=== PATIENT | female | born 1950 | race Caucasian/White ===

== ENCOUNTER 2017-02-26 10:21 | Inpatient (IN) | payer BC, MEDICARE ==
[2017-02-26 10:45] LABS: #Basophils 0.1 thou/uL (0.0-0.2); #Eosinphils 0.1 thou/uL (0.0-0.7); #Lymphocytes 2.1 thou/uL (1.20-3.40); #Monocytes 0.5 thou/uL (0.11-0.59); #Neutrophils 5.6 thou/uL (1.40-6.50); %Basophils 0.9 % (0.0-1.0); %Eosinophils 1.2 % (0.0-10.0); %Lymphocytes 25.3 % (21.0-51.0); %Monocytes 5.4 % (0.0-10.0); Hematocrit 40.4 % (36.0-47.0); Mean Platelet Volume 6.8 fL (7.4-10.4); Red Blood Cell (RBC) Count 4.26 mill/uL (4.20-5.40); White Blood Cell (WBC) Count 8.3 thou/uL (4.8-10.8)
[2017-02-26 11:11] LABS: ALT (SGPT) 9 U/L (8-55); AST (SGOT) 13 U/L (5-34); Alkaline Phosphatase 93 U/L (40-150); Anion Gap 17 mmol/L (10-20); BUN (Urea Nitrogen) 11 mg/dL (9.8-20.1); Bilirubin, Total 0.4 mg/dL (0.2-1.2); CK (CPK) 63 U/L (29-168); Calc. Creatinine Clearance 0 mL/min (70-130); Calcium 9.8 mg/dL (7.8-10.44); Carbon Dioxide 23 mmol/L (23-31); Chloride 101 mmol/L (98-107); Estimated GFR-MDRD 60; Globulin 3.2 g/dL (2.4-3.5); Lipase 15 U/L (8-78); Protein, Total 7.9 g/dL (6.0-8.3)
--- NOTE | 2017-02-26 11:18 | RAD ---
CHEST ONE VIEW: History: Syncope. Dyspnea. FINDINGS: No comparison. The cardiac silhouette and pulmonary vasculature are unremarkable. Mediastinum is midline with aorti c calcification. Lungs are hyperinflated. There is no confluent airspace consolidation or evidence o f pneumothorax. manager monitoring leads overlie the chest. IMPRESSION: 1. COPD. 2. Atherosclerosis. POS: [facility]
[2017-02-26 11:38] LABS: Bilirubin Negative (Negative); Blood, Urine Trace (Negative); Glucose, Urine (Dipstick) Negative (Negative); Ketone, Urine Negative (Negative); Nitrite Negative (Negative); Protein, Urine (Dipstick) Negative (Neg-Trace); Urobilinogen 0.2 mg/dL (0.2-1.0)
--- NOTE | 2017-02-26 11:40 | CT ---
CT HEAD WITHOUT CONTRAST: HISTORY: Chest pain. Syncope. TECHNIQUE: Multiple axial tomograms obtained through the head without IV enhancement. FINDINGS: The ventricles have normal size and position. No evidence of hemorrhage. There is an area of low a ttenuation seen in the right basal ganglia, which is asymmetric. I cannot exclude a lacunar infarct at this site. Consider MRI if there are new neurological deficits. No evidence or cortical infarct. No mass or edema. The sinuses and mastoids are unremarkable. IMPRESSION: Asymmetric low attenuation in the right basal ganglia. A age indeterminate lacunar infarct cannot b e excluded. If there is clinical concern, recommend MRI to assess for restricted diffusion at this site. POS: [facility]
[2017-02-26 11:41] LABS: Bacteria/HPF None Seen HPF (None Seen); Hyaline Casts/LPF 0-3 HYALINE CAST LPF (0-3 Hyaline); Squamous Epithelial None Seen HPF (0-3); WBC/HPF None Seen HPF (0-3)
[2017-02-26 14:50] VITALS: BMI 22.1
[2017-02-26] MEDS ORDERED: Mag-Al 1200 mg/1200 mg/30 ML UDCUP PO PRN (15:29)
[2017-02-26] MEDS ORDERED: Guaifenesin DM 100-10/5 ML UDCUP PO PRN (15:29)
[2017-02-26] MEDS ORDERED: Acetaminophen 325 MG TAB PO PRN (15:29)
[2017-02-26] MEDS ORDERED: Zolpidem Tartrate 5 MG TAB PO PRN (15:29)
[2017-02-26] MEDS ORDERED: Gadobenate Dimeglumine 529 MG/1 ML (20ML VIAL) ONE (16:06)
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
--- NOTE | 2017-02-26 20:51 | MRI ---
BRAIN MRI WITH AND WITHOUT CONTRAST 02/26/17 COMPARISON: None. HISTORY: Dizziness and hypertension for ten days, multiple falls . TECHNIQUE: Multiplanar and multisequence MRI imaging of the brain is obtained with and without contrast. FINDINGS: The diffusion weighted imaging demonstrates no evidence for acute infarction. Axial gradient echo imaging demonstrates no evidence for intracranial hemorrhage. There is no midline shift or mass effect. No ventricular enlargement is noted. There are a few scattered subcentimeter foci of increased T2 and FLAIR signal in the deep and perive ntricular white matter of the right frontal region, suggesting minimal small vessel disease. The imaged paranasal sinuses/mastoid air cells appear grossly unremarkable. Arterial flow voids at t he axial level of the skull base appear unremarkable on the T2 weighted imaging. The postcontrast imaging demonstrates no abnormal enhancement within the brain parenchyma. IMPRESSION: Incidental findings as detailed above. No acute findings seen. No mass lesion or mass effect evident . POS: [facility]
[2017-02-26] MEDS ORDERED: Metoprolol Tartrate 25 MG TAB PO SCH (21:00)
--- NOTE | 2017-02-26 21:00 | ULT ---
CAROTID ARTERIAL DOPPLER ULTRASOUND: 02/26/17 COMPARISON: None. HISTORY: CVA, assess for carotid arterial disease. TECHNIQUE: Multiplanar decker scale sonographic imaging of the arterial structures of the neck obtained with colo r flow/spectral analysis. FINDINGS: Antegrade blood flow and normal arterial waveforms are documented within the carotid and vertebral s ystem bilaterally. Scattered areas of atherosclerotic calcifications are noted within the proximal IVC and ECA bilatera lly, right greater than left. VESSELS PSV (cm/s) EDV (cm/s) Right CCA 75 14 Right ICA 92 31 Right ECA 68 20 Left CCA 90 23 Left ICA 84 26 Left ECA 96 12 ICA/CCA ratio is 1.2 on the right and 0.9 on the left. IMPRESSION: No hemodynamically significant stenosis on the basis of sonographic velocity criteria. POS: [facility]
[2017-02-26] MEDS: Atorvastatin Calcium 20 MG TAB PO SCH (21:30)
[2017-02-26] MEDS: Famotidine 20 MG TAB PO SCH (21:30)
[2017-02-26] MEDS: Metoprolol Tartrate 25 MG TAB PO SCH (21:30)
[2017-02-27 04:59] LABS: #Basophils 0.1 thou/uL (0.0-0.2); #Eosinphils 0.1 thou/uL (0.0-0.7); #Monocytes 0.5 thou/uL (0.11-0.59); #Neutrophils 4.8 thou/uL (1.40-6.50); %Basophils 0.9 % (0.0-1.0); %Eosinophils 1.8 % (0.0-10.0); %Lymphocytes 27.1 % (21.0-51.0); %Monocytes 6.1 % (0.0-10.0); Hematocrit 37.1 % (36.0-47.0); Mean Platelet Volume 6.7 fL (7.4-10.4); Red Blood Cell (RBC) Count 3.93 mill/uL (4.20-5.40); White Blood Cell (WBC) Count 7.5 thou/uL (4.8-10.8)
[2017-02-27 05:14] LABS: ALT (SGPT) 8 U/L (8-55); AST (SGOT) 11 U/L (5-34); Alkaline Phosphatase 80 U/L (40-150); Anion Gap 10 mmol/L (10-20); BUN (Urea Nitrogen) 15 mg/dL (9.8-20.1); Bilirubin, Total 0.3 mg/dL (0.2-1.2); Calc. Creatinine Clearance 61 mL/min (70-130); Calcium 9.5 mg/dL (7.8-10.44); Carbon Dioxide 27 mmol/L (23-31); Chloride 105 mmol/L (98-107); Cholesterol 260 mg/dl (< 200 Desired); Estimated GFR-MDRD 75; Globulin 2.6 g/dL (2.4-3.5); LDL Cholesterol, Calculated 180 mg/dL; Protein, Total 6.5 g/dL (6.0-8.3)
[2017-02-27] MEDS: Metoprolol Tartrate 25 MG TAB PO SCH (08:55)
[2017-02-27] MEDS: Famotidine 20 MG TAB PO SCH ×2 (08:55→20:22)
[2017-02-27] MEDS: Aspirin 325 mg Enteric Coated Tablet PO SCH (09:00)
[2017-02-27] MEDS: Cyanocobalamin (Vitamin B-12) 1,000 MCG TAB PO SCH (09:00)
[2017-02-27] MEDS ORDERED: Enoxaparin Sodium 40 MG/0.4 ML SYRINGE SC SCH (09:00)
[2017-02-27] MEDS: Folic Acid 1 MG TAB PO SCH (09:00)
[2017-02-27] MEDS ORDERED: Amlodipine 10 MG TAB PO SCH (09:00)
[2017-02-27] MEDS ORDERED: hydrALAZINE 20 MG/ML VIAL SLOW IVP PRN (10:06)
--- NOTE | 2017-02-27 12:40 | PDOC.PN ---
- Subjective Encounter Start Date: 02/27/17 Encounter Start Time: 12:38 Patient seen and examined. No new complaints. No overnight events - Objective Resuscitation Status: Resuscitation Status FULL:Full Resuscitation MAR Reviewed: Yes Vital Signs & Weight: Vital Signs (12 hours) Temp Pulse Resp BP BP Pulse Ox 02/27/17 10:50 97.6 F 80 14 140/80 97 02/27/17 08:54 87 02/27/17 08:00 96.5 F L 87 14 122/71 98 02/27/17 07:48 98.5 F 78 16 02/27/17 03:34 98.5 F 78 16 129/64 94 L Weight Weight 120 lb 12.8 oz I&O: 02/26/17 02/27/17 02/28/17 06:59 06:59 06:59 Intake Total 595 Balance 595 Result Diagrams: 02/27/17 04:38 02/27/17 04:38 Phys Exam - Physical Examination Constitutional: NAD HEENT: PERRLA Neck: no JVD Respiratory: no wheezing Cardiovascular: no significant murmur Gastrointestinal: non-tender Musculoskeletal: pulses present Neurological: normal sensation Psychiatric: A&O x 3 Dx/Plan (1) Near syncope Status: Acute (2) Altered mental state Code(s): R41.82 - ALTERED MENTAL STATUS, UNSPECIFIED Status: Acute (3) Orthostatic hypertension Code(s): I10 - ESSENTIAL (PRIMARY) HYPERTENSION Status: Acute (4) Tobacco use Code(s): Z72.0 - TOBACCO USE Status: Acute (5) Hyperlipidemia Code(s): E78.5 - HYPERLIPIDEMIA, UNSPECIFIED Status: Acute - Plan * mri and carotid dop wnl * consult cardiology for near syncope * f/u echo * tob cessation
[2017-02-27] MEDS ORDERED: Folic Acid 1 MG TAB PO SCH (12:45)
[2017-02-27 14:34] LABS: Troponin I Less than 0.010 ng/mL (< 0.028)
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
[2017-02-27 19:35] LABS: Troponin I Less than 0.010 ng/mL (< 0.028)
[2017-02-27] MEDS: Atorvastatin Calcium 20 MG TAB PO SCH (20:22)
[2017-02-27] MEDS ORDERED: Metoprolol Tartrate 25 MG TAB PO SCH (21:00)
[2017-02-28 07:41] VITALS: BP 189/81; TEMP 97.5
[2017-02-28] MEDS: Folic Acid 1 MG TAB PO SCH (08:05)
[2017-02-28] MEDS: Cyanocobalamin (Vitamin B-12) 1,000 MCG TAB PO SCH (08:05)
[2017-02-28] MEDS: Famotidine 20 MG TAB PO SCH (08:05)
[2017-02-28] MEDS: Aspirin 325 mg Enteric Coated Tablet PO SCH (08:05)
[2017-02-28] MEDS ORDERED: Amlodipine 5 MG TAB PO SCH (09:00)
[2017-02-28] MEDS ORDERED: Lidocaine 1% w/Epinephrine 1:200K 30 ML VIAL ONE (09:37)
[2017-02-28] MEDS ORDERED: hydrALAZINE 25 MG TAB PO PRN (09:39)
--- NOTE | 2017-02-28 10:25 | PDOC.PN ---
- Subjective Encounter Start Date: 02/28/17 Encounter Start Time: 10:24 Patient seen and examined. No new complaints. No overnight events - Objective Resuscitation Status: Resuscitation Status FULL:Full Resuscitation MAR Reviewed: Yes Vital Signs & Weight: Vital Signs (12 hours) Temp Pulse Resp BP Pulse Ox 02/28/17 08:00 97.5 F L 72 18 02/28/17 07:15 97.5 F L 72 18 189/81 H 96 02/28/17 03:43 98.3 F 75 12 184/82 H 94 L 02/27/17 23:22 98.6 F 73 12 145/76 H 95 Weight Weight 118 lb 9.6 oz I&O: 02/27/17 02/28/17 03/01/17 06:59 06:59 06:59 Intake Total 595 800 Balance 595 800 Result Diagrams: 02/27/17 04:38 02/27/17 04:38 Phys Exam - Physical Examination Constitutional: NAD HEENT: PERRLA Neck: no JVD Respiratory: no rales Cardiovascular: no significant murmur Gastrointestinal: no distention Musculoskeletal: pulses present Neurological: moves all 4 limbs Psychiatric: A&O x 3 Dx/Plan (1) Near syncope Status: Acute (2) Altered mental state Code(s): R41.82 - ALTERED MENTAL STATUS, UNSPECIFIED Status: Resolved (3) Orthostatic hypertension Code(s): I10 - ESSENTIAL (PRIMARY) HYPERTENSION Status: Acute (4) Tobacco use Code(s): Z72.0 - TOBACCO USE Status: Acute (5) Hyperlipidemia Code(s): E78.5 - HYPERLIPIDEMIA, UNSPECIFIED Status: Acute - Plan * got loop recorder * prn hydralazine * statin for high ldl * d/c home
--- NOTE | 2017-02-28 11:56 | DIS ---
DATE OF ADMISSION: 02/26/2017 DATE OF DISCHARGE: 02/28/2017 CONSULTANTS: Terrence Chaudhry MD DISCHARGE DIAGNOSES: Near syncope and history of complete syncopal episode in the past, osteoarthri tis, orthostatic hypotension, tobacco abuse, altered mental state, resolved; hyperlipidemia. This patient's consultants were Cardiology and Neurology. The patient's test this hospital stay was CT scan of the brain which showed low attenuation area in the right basal ganglia, followed by an MRI of the brain which was within normal limits. The patien t's carotid Doppler did not show any hemodynamically significant stenosis. BRIEF HOSPITAL COURSE: This is a 66-year-old pleasant lady who came into the hospital with near syn copal episode. She was admitted to the stroke unit because initially the CT scan showed possible st roke. Patient had an MRI which was clean. Dr. Gallagher evaluated the patient and thought the patient's symptoms were because of orthostatic hypotension. The patient did have a history of labile hyperte nsion this hospital stay with systolic blood pressures ranging from 100s to 180s. The patient was g iven only p.r.n. medications this hospital stay, she was also evaluated by Dr. Chaudhry who thought th at the syncope and presyncope episode could be secondary to arrhythmia. She got a loop recorder tomelissa coker. Right now, she is medically stable to be discharged. She is asked to stop smoking and not driv e until she sees Cardiology and cleared by them. She is asked to keep a log of her blood pressure a nd take the p.r.n. hydralazine as needed. DISCHARGE MEDICATIONS: Include baby aspirin p.o. daily, Lipitor 20 mg p.o. daily and hydralazine 25 mg p.o. q.6 hours for systolic greater than 160 and she understands all the instructions. She is g junior to follow up with PCP and Cardiology as an outpatient in 1 week. Patient is right now medicall y stable to be discharged. She is asked to come back to the emergency room in case symptoms recur. Total time for this discharge took 35 minutes.
--- NOTE | 2017-02-28 14:35 | CCL ---
DATE OF SERVICE: 02/28/2017 PROCEDURE PERFORMED: Insertion of a permanent equipment monitor phototypesetting, model MDT LINQ 11, serial number [id number]. COMPLICATIONS: None. VEGETABLE GRADER: Terrence Chaudhry MD INDICATION: Syncope. DESCRIPTION: The patient was taken to the cardiac catheterization lab area and prepped and draped i n the usual sterile fashion. Lidocaine was utilized for local anesthesia. An incision was made at the fourth intercostal space in the left pectoral region utilizing a skin puncture tool. Insertable equipment monitor phototypesetting was inserted through the puncture site with LINQ insertion tool. Dermabond was the n applied to the side in the usual sterile fashion. PLAN: 1. Follow up in 1 week for wound check. 2. Continue monitoring. 3. Recommendations were not driving and not operating heavy machinery and standard post-syncope rec ommendations were given. POS: [facility]
--- NOTE | 2017-03-08 16:38 | EKG ---
Test Reason : Blood Pressure : / mmHG Vent. Rate : 071 BPM Atrial Rate : 071 BPM P-R Int : 154 ms QRS Dur : 078 ms QT Int : 378 ms P-R-T Axes : 046 005 033 degrees QTc Int : 410 ms Normal sinus rhythm Possible Left atrial enlargement Borderline ECG Confirmed by JADE HERNANDEZ, PATRICK ([id number]), script editor CRISTINO CROW ([id number]) on 03/08/2017 4:38:29 PM Referred By: Confirmed By:PATRICK HANSEN MD
== END 2017-02-28 11:42 | disposition home or self-care (01) | DRG 262 ==
LOC: ERS 10:21 → 2SE 13:23
PROVIDERS: ADMIT Internal Medicine; ATTEND Internal Medicine
PROC: 0JH602Z Insertion of Monitoring Device into Chest Subcutaneous Tissue and Fascia, Open Approach (ICD-10-PCS; principal; 2017-02-28)
DX: R55 Syncope and collapse (principal); I10 Essential (primary) hypertension; E78.5 Hyperlipidemia, unspecified; I95.1 Orthostatic hypotension; Z88.5 Allergy status to narcotic agent; Z90.710 Acquired absence of both cervix and uterus; Z72.0 Tobacco use; M19.90 Unspecified osteoarthritis, unspecified site; R41.82 Altered mental status, unspecified
CPT/HCPCS: 33282; 36415; 70450; 70553; 71010; 80053; 80061; 81003; 81015; 82553; 82607; 82746; 83690; 84484; 85025; 86430; 93005; 93306; 93880; 99406; A9579; C1764; G8978-GP-CK; G8979-GP-CK; G8980-GP-CK; G8987-GO-CI; G8988-GO-CI; G8989-GO-CI; G8996-GN-CH; G8997-GN-CH; G8998-GN-CH; J1650

== ENCOUNTER 2017-04-16 07:09 | Outpatient (CLI) | payer BC | END 2017-04-16 07:10 | disposition home or self-care (01) | LOC: BICULT 07:09 | PROVIDERS: ATTEND Psychiatry & Neurology Neurology | DX: E04.1 Nontoxic single thyroid nodule (principal); E04.2 Nontoxic multinodular goiter | CPT/HCPCS: 76536 ==

== ENCOUNTER 2017-05-22 07:46 | Outpatient (CLI) | payer BC | END 2017-05-22 07:47 | disposition home or self-care (01) | LOC: BICMAMMO 07:46 | PROVIDERS: ATTEND Obstetrics & Gynecology | DX: Z12.31 Encounter for screening mammogram for malignant neoplasm of breast (principal) | CPT/HCPCS: 77063; 77067 ==

== ENCOUNTER 2017-10-09 12:54 | Outpatient (CLI) | payer BC, MEDICARE | END 2017-10-09 12:55 | disposition home or self-care (01) | LOC: BICULT 12:54 | PROVIDERS: ATTEND Family Medicine | DX: E04.1 Nontoxic single thyroid nodule (principal) | CPT/HCPCS: 76536 ==

== ENCOUNTER 2018-05-25 08:27 | Outpatient (CLI) | payer BC | END 2018-05-25 08:28 | disposition home or self-care (01) | LOC: BICMAMMO 08:27 | PROVIDERS: ATTEND Obstetrics & Gynecology | DX: Z12.31 Encounter for screening mammogram for malignant neoplasm of breast (principal); N63.20 Unspecified lump in the left breast, unspecified quadrant; R92.1 Mammographic calcification found on diagnostic imaging of breast | CPT/HCPCS: 77063; 77067 ==

== ENCOUNTER 2019-05-27 10:12 | Outpatient (CLI) | payer BC ==
--- NOTE | 2019-05-27 13:29 | MMO ---
Bilateral MAMMO Bilat Screen [facility]. CLINICAL HISTORY: Patient is 69 years old and is seen for screening. The patient has no family history of breast cancer. The patient has no personal history of cancer. The patient has a history of left Excisional Biopsy in 1977 - benign. VIEWS: The views performed were: bilateral craniocaudal with tomosynthesis and bilateral mediolateral oblique with tomosynthesis. FILMS COMPARED: The present examination has been compared to prior imaging studies performed at [facility] on 05/10/2015, 05/17/2016, 05/22/2017 and 05/25/2018. This study has been interpreted with the assistance of computer-aided detection. MAMMOGRAM FINDINGS: There are scattered fibroglandular densities. There are stable benign appearing calcifications seen in both breasts. There are no suspicious masses, suspicious calcifications, or new areas of architectural distortion. IMPRESSION: THERE IS NO MAMMOGRAPHIC EVIDENCE OF MALIGNANCY. A ROUTINE FOLLOW-UP MAMMOGRAM IN 1 YEAR IS RECOMMENDED. THE RESULTS OF THIS EXAM WERE SENT TO THE PATIENT. ACR BI-RADS Category 2 - Benign finding MAMMOGRAPHY NOTE: 1. A negative mammogram report should not delay a biopsy if a dominant of clinically suspicious mass is present. 2. Approximately 10% to 15% of breast cancers are not detected by mammography. 3. Adenosis and dense breasts may obscure an underlying neoplasm. Reported by: SERGE MOLINA MD Electonically Signed: [id number]
== END 2019-05-27 10:13 | disposition home or self-care (01) ==
LOC: BICMAMMO 10:12
PROVIDERS: ATTEND Obstetrics & Gynecology
DX: Z12.31 Encounter for screening mammogram for malignant neoplasm of breast (principal); Z91.89 Other specified personal risk factors, not elsewhere classified
CPT/HCPCS: 77063; 77067